=== PATIENT | female | born 1960 ===

== ENCOUNTER 2022-01-11 17:43 | Emergency (ER) | payer OTHER, SELFPAY ==
[2022-01-11 18:22] VITALS: BP 141/80; PULSE 73; RESP 18; TEMP 37.1; O2SAT 98; BMI 28.0
[2022-01-11 18:40] LABS: Imm Gran Abs Auto 0.02 X10*3/uL (0.00-0.03); Imm Gran Pct Auto 0.4 % (0.0-0.4); MANUAL DIFF FLAG SCAN; Neutrophils Absolute Auto 2.9 x10*3/uL (2.0-8.3); PLT CLUMP 1; SCAN SMEAR FLAG 1
[2022-01-11 18:42] LABS: Basophils Percent Auto 0.5 % (0-2); Eosinophils Absolute Auto 0.1 X10*3/uL (0.0-0.4); Eosinophils Percent Auto 1.8 % (0-4); Hematocrit 39.9 % (37.0-47.0); Hemoglobin 13.7 g/dl (12.0-16.0); Lymphocytes Absolute Auto 2.1 X10*3/uL (1.2-4.9); Lymphocytes Percent Auto 38.3 % (20-40); Mean Corpuscular HGB Conc 34.3 g/dl (31.0-35.0); Mean Corpuscular Hemoglobin 31.1 pg (27.0-33.0); Mean Corpuscular Volume 90.7 fL (80.0-98.0); Monocytes Absolute Auto 0.4 X10*3/uL (0.1-1.2); Monocytes Percent Auto 7.2 % (2-11); Neutrophils Percent Auto 51.8 % (45-73); Red Cell Distribution Width 12.3 % (11.0-16.0)
[2022-01-11 18:56] LABS: COVID-19 Test Negative (Negative)
[2022-01-11 18:58] LABS: White Blood Count 5.5 X10*3/uL (4.8-10.8)
[2022-01-11 19:02] LABS: SLIDE REVIEW VERIFIED
[2022-01-11 19:06] LABS: Alanine Aminotransferase 59 U/L (0-31); Albumin Level 4.6 g/dL (3.5-5.0); Alkaline Phosphatase 82 U/L (39-117); Anion Gap 19 (12-20); Aspartate Amino Transferase 40 U/L (5-31); Bilirubin Direct 0.2 mg/dL (0.0-0.5); Bilirubin Total 0.4 mg/dL (0.0-1.0); Blood Urea Nitrogen 16 mg/dL (9-16); Calcium 9.7 mg/dL (8.4-10.2); Carbon Dioxide 21 mmol/L (22-29); Chloride 104 mmol/L (96-108); Creatinine Clr Calc Pharmacy 65.3; Estimated Glomerular Filt Rate > 60; Glucose Random 108 mg/dL (60-115); Potassium 4.6 mmol/L (3.3-5.1); Sodium 139 mmol/L (135-145); Total Protein 7.3 g/dL (6.5-8.0)
--- OUTSIDE RECORDS SUMMARY | 2022-01-12 00:04 | XMS_ITS | Continuity of Care Document ---
:1960 Author Organization [facility] Address [address] [place], [place] [id number]- Care Team Providers Name Role Phone Emmanuel RODRIGUEZ, Alfreda Noguera Primary Care Physician [phone] Encounter [facility] Date(s): 08/03/21 - 12/01/21 [facility] [address] [place] [address]- Attending Physician: Juan Carlos Wright MD Admitting Physician: Juan Carlos Wright MD Referring Physician: Alfreda Benitez NP
--- OUTSIDE RECORDS SUMMARY | 2022-01-12 00:04 | XMS_ITS | Continuity of Care Document ---
:1960 Author Organization [facility] Address [address] [place] [address], [address] [address]- Care Team Providers Name Role Phone Emmanuel RODRIGUEZ, Alfreda Noguera Primary Care Physician Encounter 08/05/21 - 08/12/21 [facility] [address] [address]- Attending Physician: Alfreda Benitez NP Admitting Physician: Alfreda Benitez NP Referring Physician: Alfreda Benitez NP
--- OUTSIDE RECORDS SUMMARY | 2022-01-12 00:04 | XMS_ITS | Continuity of Care Document ---
:1960 Author Organization [facility] [place] [facility] Address [address] [place] [address]- Care Team Providers Name Role Phone Emmanuel RODRIGUEZ, Alfreda Noguera Primary Care Physician [phone] Encounter 07/14/21 - 07/21/21 [facility] [address] [address]- Attending Physician: Alfreda Benitez NP Admitting Physician: Alfreda Benitez NP Referring Physician: Alfreda Benitez NP
--- OUTSIDE RECORDS SUMMARY | 2022-01-12 00:04 | XMS_ITS | Continuity of Care Document ---
:1960 Author Organization [facility] Address [address] [place] [address] Care Team Providers Name Role Phone Emmanuel RODRIGUEZ, Alfreda Noguera Primary Care Physician [phone] Encounter [facility] Date(s): 11/01/21 - 12/01/21 [facility] [address] [place] [address]- Attending Physician: Felicia Person Admitting Physician: Felicia Person Referring Physician: Felicia Person
--- OUTSIDE RECORDS SUMMARY | 2022-01-12 00:04 | XMS_ITS | Continuity of Care Document ---
:1960 Author Organization [facility] Address [address] [place] [address]- Care Team Providers Name Role Phone Emmanuel RODRIGUEZ, Alfreda Noguera Primary Care Physician Encounter [facility] Date(s): 01/09/22 - 01/10/[address] [address]- Discharge Disposition: A-D/C Walkout Attending Physician: Not on Staff, Attending MD Admitting Physician: Not on Staff, Admitting MD Referring Physician: Not on Staff, Referring MD Allergies, Adverse Reactions, Alerts No Known Allergies Medications No Known Medications Vital Signs Most recent to oldest [Reference Range]: 1 2 Oxygen Saturation [94-100 %] 95 % 96 % (01/09/22 10:15 PM) (01/09/22 9:53 PM) Pulse Rate [55-90 bpm] 91 bpm 100 bpm *H* *H* (01/09/22 10:15 PM) (01/09/22 9:53 PM) Blood Pressure [90-138/55-84 mm Hg] 144/92 mm Hg *H* (01/09/22 10:15 PM) Respiratory Rate [16-30 br/min] 16 br/min 16 br/mi n (01/09/22 10:15 PM) (01/09/22 9:53 PM) Temperature [96.8-100.4 DegF] 98.7 DegF (01/09/22 10:15 PM) Mode of Delivery (Oxygen) Room air Room air (01/09/22 10:15 PM) (01/09/22 9:53 PM) Blood pressure sites Arm, right (01/09/22 10:15 PM) Temperature Route Oral (01/09/22 10:15 PM) Patient Care team information PersonnelName: Alfreda Benitez NP Address: Address: [address] [place] [address], [place] [address]
== END 2022-01-12 00:16 | disposition left against medical advice (07) ==
PROVIDERS: Emergency Provider Emergency Medicine; PCP Registered Nurse
DX: R11.10 Vomiting, unspecified (principal); R10.9 Unspecified abdominal pain; Z20.822 Contact with and (suspected) exposure to COVID-19; Z79.899 Other long term (current) drug therapy
CPT/HCPCS: 80048; 80076; 85025; 87635; 99281; 99283